=== PATIENT | male | born 1945 | race Caucasian/White ===

== ENCOUNTER → 2021-12-17 | Day surgery (SDC) | payer MEDICARE | END | disposition home or self-care (01) | LOC: MSO 07:01 | DX: H25.13 Age-related nuclear cataract, bilateral (principal); E11.36 Type 2 diabetes mellitus with diabetic cataract; H35.30 Unspecified macular degeneration; I10 Essential (primary) hypertension; I71.4 Abdominal aortic aneurysm, without rupture; F32.A Depression, unspecified; H91.90 Unspecified hearing loss, unspecified ear; Z87.891 Personal history of nicotine dependence; Z79.899 Other long term (current) drug therapy; Z79.82 Long term (current) use of aspirin; Z79.84 Long term (current) use of oral hypoglycemic drugs; Z89.421 Acquired absence of other right toe(s) | CPT/HCPCS: 00142; J0171; J2250; V2632 ==

== ENCOUNTER → 2022-01-14 | Day surgery (SDC) | payer MEDICARE | LOC: MSO 06:12 | DX: H25.11 Age-related nuclear cataract, right eye (principal) | CPT/HCPCS: 00142; J0171; J2250; V2632 ==